=== PATIENT | female | born 1975 | race Asian ===

== ENCOUNTER 2016-07-27 15:21 | Emergency (ER) | payer OTHER ==
[~2016-07-27] VITALS: Ht 165.1 cm; Wt 57.2 kg
[2016-07-27 15:37] VITALS: BP 130/63
--- NOTE | 2016-07-27 17:08 | NUR ---
41/F BIB FAMILY C/O VOMITING x 2 MONTHS EVERY MORNING. PT STATES SHE STARTED HAVING ABD PAIN THIS AM, PAIN 9/10 ACHING NON RADIATING. AAOx4, PERRLA, BREATHING EVEN AND UNLABORED. ERMD NOTIFIED ABOUT PATIENT STATUS. WILL CONTINUE TO MONITIOR.
--- NOTE | 2016-07-27 17:45 | NUR ---
Patient being evaluated by physician at bedside.
--- NOTE | 2016-07-27 18:46 | NUR ---
PT RESTING. VSS. PATIENT POSITIONED FOR COMFORT; HOB ELEVATED; BEDRAILS UP X2; BED DOWN. ER MD MADE AWARE OF PT STATUS.
--- NOTE | 2016-07-27 19:10 | NUR ---
Pt report given to GÓMEZ TOSCANO. Transfer of care at this time.
--- NOTE | 2016-07-27 19:20 | NUR ---
IV removed, catheter intact and site benign. Applied folded 4x4 gauze and tape to stop bleeding.
[2016-07-27 19:24] VITALS: BP 121/71
--- NOTE | 2016-07-27 19:24 | NUR ---
Patient discharged with v/s stable. Written and verbal after care instructions given and explained. Patient verbalized understanding. Ambulatory with steady gait. All questions addressed prior to discharge. Advised to follow up with PMD.
== END 2016-07-27 19:24 | disposition home or self-care (01) ==
LOC: MED 15:21
DX: O03.9 Complete or unspecified spontaneous abortion without complication (principal); Z3A.08 8 weeks gestation of pregnancy

== ENCOUNTER 2016-07-29 13:03 | Emergency (ER) | payer OTHER ==
[~2016-07-29] VITALS: Ht 165.1 cm; Wt 57.2 kg
[2016-07-29 13:22] VITALS: BP 118/82
--- NOTE | 2016-07-29 14:58 | NUR ---
Patient ambulated to OF to be evaluated as fast track by Dr. Ulloa. RN evaluating patient in OF.
--- NOTE | 2016-07-29 15:00 | NUR ---
Dr. Ulloa evaluating patient in OF.
--- NOTE | 2016-07-29 15:36 | NUR ---
41/F TO ED FOR FOLLOW UP ON MISCARRIAGE. PT STATES SHE CAME TO ED 2 DAYS AGO FOR MISCARRIAGE AND WAS TOLD TO FOLLOW UP TODAY. DENIES PAIN. DENIES N/V/D. LUNGS CLEAR BILAT. HR EVEN AND REGULAR. AAOX4 . VSS. NO SIGNS OF DISTRESS.
[2016-07-29 15:39] VITALS: BP 118/82
== END 2016-07-29 15:40 | disposition home or self-care (01) ==
LOC: MED 13:03
DX: O03.9 Complete or unspecified spontaneous abortion without complication (principal); O09.521 Supervision of elderly multigravida, first trimester; Z3A.08 8 weeks gestation of pregnancy
CPT/HCPCS: 36415; 84702; 99283